=== PATIENT | female | born 1960 | race African-American/Black ===

== ENCOUNTER 2019-02-12 09:04 | Emergency (ER) | payer MEDICAID ==
[~2019-02-12] VITALS: Ht 170.2 cm; Wt 73.0 kg
[~2019-02-12 09:04] MED LIST: ACET-3161; ALBU25PO2; IBUP-2030
[2019-02-12] MEDS ORDERED: ASPIRIN 81MG TABLET PO ONE (10:00)
[2019-02-12] MEDS ORDERED: ALBUTEROL (0.083%) 2.5MG/3ML NEB HHN ONE (10:00)
[2019-02-12] MEDS ORDERED: METHYLPREDNISOLONE SOD SUCC 125 MG/2 ML VIAL IV ONE (10:00)
[2019-02-12 10:51] LABS: BASOPHILS % 0.8 % (0.0-2.0); EOSINOPHILS % 2.2 % (0.0-5.0); HEMATOCRIT. 41.3 % (36.0-48.0); HEMOGLOBIN. 13.9 g/dL (12.0-16.0); LYMPHOCYTES % 39.7 % (20.0-50.0); MEAN CORPUSCULAR HEMOGLOBIN 30.8 pg (28.0-32.0); MEAN CORPUSCULAR VOLUME 91.6 fL (81.0-99.0); MEAN PLATELET VOLUME 9.4 fl (7.4-10.4); MONOCYTES % 5.9 % (2.0-8.0); NEUTROPHILS % 51.4 % (40.0-76.0); PLATELET 182 x1000/uL (130-400); RED BLOOD CELL COUNT 4.51 mill/uL (4.2-5.4); RED CELL DISTRIBUTION WIDTH 13.1 % (11.6-14.6)
[2019-02-12 10:56] LABS: CHLORIDE 110 mEq/L (98-107)
[2019-02-12 11:00] LABS: CLARITY URINE CLEAR (CLEAR); COLOR URINE YELLOW (YELLOW); KETONES URINE NEGATIVE (NEGATIVE); LEUKOCYTE ESTERASE URINE NEGATIVE (NEGATIVE); NITRITE URINE NEGATIVE (NEGATIVE); OCCULT BLOOD URINE NEGATIVE (NEGATIVE); PROTEIN URINE 1+ (NEGATIVE); SPECIFIC GRAVITY URINE 1.018 (1.005-1.030); UROBILINOGEN URINE 0.2 E.U./dL (0.2-1.0)
[2019-02-12] MEDS ORDERED: HYDROCODONE/ACETAMINOPHEN 5/325MG TABLET PO ONE (11:15)
[2019-02-12] MEDS ORDERED: LIDOCAINE 5% PATCH TOP STA (11:23)
[2019-02-12 13:46] VITALS: BP 131/82
== END 2019-02-12 14:10 | disposition home or self-care (01) ==
LOC: ER 09:12
DX: R07.89 Other chest pain (principal); I11.0 Hypertensive heart disease with heart failure; I50.9 Heart failure, unspecified; J44.9 Chronic obstructive pulmonary disease, unspecified
CPT/HCPCS: 36415; 71045; 80053; 81003; 83880; 84484; 85025; 85379; 93005; 94640; 96374; 99284; J2930; J7611; Z7610

== ENCOUNTER 2022-12-05 10:56 | Emergency (ER) | payer MEDICAID, OTHER ==
[~2022-12-05] VITALS: Ht 134.6 cm; Wt 32.0 kg
[~2022-12-05 10:56] MED LIST changes: +ALBU18HF2 IH; +FLUT1DIS3 INH
[2022-12-05] MEDS ORDERED: MORPHINE SULFATE 4 MG/ML CPJ (NOT FOR IM USE) IV ONE (12:00)
[2022-12-05 12:29] LABS: BASOPHILS % 0.6 % (0.0-2.0); EOSINOPHILS % 2.7 % (0.0-5.0); HEMATOCRIT. 37.2 % (36.0-48.0); HEMOGLOBIN. 12.5 g/dL (12.0-16.0); LYMPHOCYTES % 25.9 % (20.0-50.0); MEAN CORPUSCULAR HGB CONC 33.5 g/dL (31.0-37.0); MEAN CORPUSCULAR VOLUME 92.5 fL (81.0-99.0); MEAN PLATELET VOLUME 8.9 fl (7.4-10.4); MONOCYTES % 7.8 % (2.0-8.0); PLATELET 194 x1000/uL (130-400); RED BLOOD CELL COUNT 4.02 mill/uL (4.2-5.4); RED CELL DISTRIBUTION WIDTH 12.8 % (11.6-14.6); WHITE BLOOD COUNT 7.1 x1000/uL (4.5-11.0)
[2022-12-05 12:41] LABS: INR 1.1; PROTHROMBIN TIME 11.6 sec (9.6-11.0)
[2022-12-05 12:50] LABS: INDEX HEMOLYSI 4 (1-3); INDEX ICTERIC 1 (1-4); INDEX LIPEMIC 1 (1-3)
[2022-12-05 14:56] LABS: ALANINE AMINOTRANSFERASE 24 IU/L (13-61); ALBUMIN 3.1 g/dL (3.4-5.0); ASPARTATE AMINOTRANSFERASE 31 IU/L (15-37); BILIRUBIN TOTAL 0.3 mg/dL (0.1-1.0); CALCIUM 8.7 mg/dL (8.5-10.1); CARBON DIOXIDE 27 mEq/L (21-32); CREATININE 0.8 mg/dL (0.6-1.3); GLUCOSE 77 mg/dL (70-105); NT PRO B-TYPE NATRIURETIC PEP 992 pg/mL (5-125); PROTEIN TOTAL 7.6 g/dL (6.0-8.3); TROPONIN I HIGH SENSITIVITY 34 ng/L (<54); UREA NITROGEN BLOOD 22 mg/dL (7-21)
[2022-12-05 14:56] LABS: TROPONIN I HIGH SENSITIVITY 36 ng/L (<54)
[2022-12-05 15:35] LABS: CHLORIDE 108 mEq/L (98-107); POTASSIUM 4.1 mEq/L (3.5-5.1); SODIUM 143 mEq/L (136-145)
[2022-12-05] MEDS ORDERED: HYDROCODONE/ACETAMINOPHEN 5/325MG TABLET PO ONE (16:30)
[2022-12-05] MEDS ORDERED: LOSARTAN 50 MG TABLET PO ONE (17:15)
[2022-12-05] MEDS ORDERED: CLONIDINE 0.1MG TABLET PO ONE (17:15)
[2022-12-05 23:27] VITALS: BP 124/89; PULSE 104; RESP 20; TEMP 98.6; O2SAT 99
== END 2022-12-05 23:27 | disposition home or self-care (01) ==
LOC: ER 10:56
DX: S20.213A Contusion of bilateral front wall of thorax, initial encounter (principal); F15.10 Other stimulant abuse, uncomplicated; I50.9 Heart failure, unspecified; J44.9 Chronic obstructive pulmonary disease, unspecified; I10 Essential (primary) hypertension; Y08.89XA Assault by other specified means, initial encounter; Y93.89 Activity, other specified; Y92.89 Other specified places as the place of occurrence of the external cause; Y99.8 Other external cause status
CPT/HCPCS: 80053; 83880; 85025; 85610; 84484; 36415; 71045; 71250; 93005; 96374; 99285; J2270; Z7610 ×3

== ENCOUNTER 2025-01-18 23:15 | Inpatient (IN) | payer MEDICAID ==
[~2025-01-18] VITALS: Ht 167.6 cm; Wt 72.6 kg
[2025-01-18] MEDS ORDERED: NITROGLYCERIN 0.4MG TABLET SL SL PRN (23:30)
[2025-01-18] MEDS: ASPIRIN 81MG TABLET PO ONE (23:30)
[2025-01-19] VITALS (7 sets, daily range): BP systolic 110–166; BP diastolic 75–100; PULSE 69–100; RESP 16–20; TEMP 36.4–36.7; O2SAT 95–98
[2025-01-19 00:03] LABS: BASOPHILS % 1.1 % (0.0-2.0); EOSINOPHILS % 1.5 % (0.0-5.0); HEMATOCRIT. 36.0 % (36.0-48.0); HEMOGLOBIN. 11.6 g/dL (12.0-16.0); LYMPHOCYTES % 32.9 % (20.0-50.0); MEAN PLATELET VOLUME 8.7 fl (7.4-10.4); MONOCYTES % 9.3 % (2.0-8.0); NEUTROPHILS % 55.2 % (40.0-76.0); PLATELET 208 x1000/uL (130-400); RED BLOOD CELL COUNT 3.94 mill/uL (4.2-5.4); RED CELL DISTRIBUTION WIDTH 13.9 % (11.6-14.6)
[2025-01-19 00:14] LABS: CREATININE 0.8 mg/dL (0.6-1.0); INR 1.1; UREA NITROGEN BLOOD 13 mg/dL (9-23)
[2025-01-19 00:15] LABS: PROTEIN TOTAL 7.3 g/dL (6.0-8.3)
[2025-01-19 00:16] LABS: ASPARTATE AMINOTRANSFERASE 10 IU/L (<34); BILIRUBIN DIRECT < 0.1 mg/dL (<=3.0); TROPONIN I HIGH SENSITIVITY 20 ng/L (3.0-34)
[2025-01-19 00:17] LABS: BILIRUBIN TOTAL 0.2 mg/dL (0.1-1.0)
[2025-01-19] MEDS: PIPERACILLIN/TAZO 3.375G/50ML 50 ML IV ONE (01:21)
[2025-01-19] MEDS: MORPHINE SULFATE 4 MG/ML INJ (FOR IV/IM USE) IV ONE (01:21)
[2025-01-19] MEDS: VANCOMYCIN 1G PREMIX 200 ML IV ONE (02:10)
[2025-01-19 02:14] LABS: TROPONIN I HIGH SENSITIVITY 17 ng/L (3.0-34)
[2025-01-19 06:00] LABS: INFLUENZA TYPE A Presumptive Negative (Pres. Neg.)
[2025-01-19 06:01] LABS: INFLUENZA TYPE B Presumptive Negative (Pres. Neg.)
[2025-01-19 06:05] LABS: RESPIRATORY SYNCYTIAL VIRUS Not Detected (Not Detectd)
[2025-01-19] MEDS: NIFEDIPINE XL 60MG TAB PO SCH (09:45)
[2025-01-19] MEDS: AZITHROMYCIN 500 MG TABLET PO SCH (12:28)
[2025-01-19] MEDS ORDERED: NALOXONE HCL 0.4MG/ML VIAL IV PRN (12:30)
[2025-01-19] MEDS: HYDROCODONE/ACETAMINOPHEN 5/325MG TABLET PO PRN (12:35)
[2025-01-19] MEDS: HYDRALAZINE HCL 50MG TABLET PO SCH (13:59)
[2025-01-19] MEDS: LIDOCAINE 5% PATCH TOP SCH (14:00)
[2025-01-19] MEDS: CEFTRIAXONE 1GM/50ML 50 ML IV SCH (14:01)
[2025-01-19 14:03] LABS: TROPONIN I HIGH SENSITIVITY 17 ng/L (3.0-34)
[2025-01-19] MEDS: IPRATROPIUM/ALBUTEROL 0.5-3(2.5)MG/3ML NEB HHN SCH (14:56)
[2025-01-20] VITALS (8 sets, daily range): BP systolic 106–156; BP diastolic 66–91; PULSE 86–101; RESP 15–18; TEMP 36.1–37.2; O2SAT 94–100
[2025-01-20] MEDS: ACETAMINOPHEN 325MG TABLET PO PRN (17:46)
[2025-01-20] MEDS: KETOROLAC 15MG/ML VIAL IV PRN (20:42)
[2025-01-21] VITALS (8 sets, daily range): BP systolic 92–124; BP diastolic 56–86; PULSE 90–102; RESP 17–24; TEMP 36.6–37.2; O2SAT 95–100
[2025-01-21] MEDS ORDERED: NIFE-32 PO (09:17)
[2025-01-21] MEDS ORDERED: LEVO750T68 MT (09:17)
[2025-01-21] MEDS ORDERED: HYDR50TA39 PO (09:17)
== END 2025-01-21 17:55 | disposition home or self-care (01) | DRG 140 ==
LOC: ER 23:15 → 5WST 01-19 00:49 → EDBEDREQ 01-19 01:41 → EDBEDREQTM 01-19 01:41 → ENRESERV 01-19 04:51 → 5WST 01-20 17:57
PROVIDERS: ADMIT Internal Medicine; ATTEND Internal Medicine
DX: J44.0 Chronic obstructive pulmonary disease with (acute) lower respiratory infection (principal); J18.9 Pneumonia, unspecified organism; F19.10 Other psychoactive substance abuse, uncomplicated; I10 Essential (primary) hypertension; F17.210 Nicotine dependence, cigarettes, uncomplicated; Z20.822 Contact with and (suspected) exposure to COVID-19; Z71.6 Tobacco abuse counseling; Z79.899 Other long term (current) drug therapy; Z55.6 Problems related to health literacy
CPT/HCPCS: 36415; 71045; 80048; 80076; 83605; 83880; 84145; 84484; 85025; 87420; 87426; 87804; 93005; 94070; 94640; 94664; 94760; 98960; 99291; J0696; J1885; J2270; J2543; J3373